=== PATIENT | male | born 1985 | race Two or more races ===

== ENCOUNTER 2018-01-17 09:43 | Emergency (ER) | payer OTHER ==
[~2018-01-17] VITALS: Ht 170.2 cm; Wt 72.6 kg
--- NOTE | 2018-01-17 09:55 | NUR ---
DR. VINSON IS AT THE BEDSIDE.
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
--- NOTE | 2018-01-17 10:15 | NUR ---
PT LEFT FOR CT VIA GURNEY WITH [employer]
--- NOTE | 2018-01-17 10:35 | NUR ---
PT RETURNED FROM CT.
--- NOTE | 2018-01-17 10:57 | NUR ---
Patient discharged to [facility] in stable condition. Written and verbal after care instructions given. Patient verbalizes understanding of instruction. PT AMBULATED OUT WITH STEADY GAIT.
[2018-01-17 10:59] VITALS: BP 115/89
--- NOTE | 2018-01-17 11:00 | NUR ---
PT WAS AMBULATING OUT WITH [employer] AND APPEARED TO BE IN PAIN. SPOKE TO DR. VINSON AND NEW ORDER GIVEN. PT REC'D MOTRIN 600MG PO.
[2018-01-17] MEDS ORDERED: IBUPROFEN 600 MG TABLET PO ONE ×2 (11:02→11:30)
== END 2018-01-17 11:00 ==
LOC: ER 09:48
DX: S09.8XXA Other specified injuries of head, initial encounter (principal); S00.11XA Contusion of right eyelid and periocular area, initial encounter; S30.811A Abrasion of abdominal wall, initial encounter; S60.512A Abrasion of left hand, initial encounter; F17.200 Nicotine dependence, unspecified, uncomplicated; Y04.0XXA Assault by unarmed brawl or fight, initial encounter; Y93.89 Activity, other specified; Y92.89 Other specified places as the place of occurrence of the external cause; Y99.8 Other external cause status
CPT/HCPCS: 70450; 70480; 71045; 73130; 99284; A4606; Z7610